=== PATIENT | male | born 1975 | race Hispanic/Latino ===

== ENCOUNTER 2019-06-02 11:11 | Emergency (ER) | payer BC ==
[2019-06-02] MEDS ORDERED: KETOROLAC 30 MG/ML INJ ONE (12:00)
--- NOTE | 2019-06-02 13:00 | RAD REPORT ---
EXAM DESCRIPTION: RAD - Knee Right 3 View - 06/02/2019 12:02 pm CLINICAL HISTORY: Knee pain, trauma COMPARISON: None. FINDINGS: No fracture, dislocation or periosteal reaction.Small joint effusion is present. No lipoma hemarthrosis evidence. No joint space narrowing. No foreign body or other soft tissue abnormality. IMPRESSION: Small joint effusion with no acute bone finding. Clinical concerns for internal derangement or occult bony injury could be further assessed with MR im aging.
--- NOTE | 2019-06-02 13:06 | ER ---
Nurse's Notes [facility] Name: Johnie Bennett Age: 43 yrs Sex: Male : 1975 Arrival Date: 06/02/2019 Time: 11:16 Bed 15 Private MD: Diagnosis: Internal derangement of knee Presentation: 06/02 11:14 Presenting complaint: Patient states: Was playing with his dog yesterday when he heard rb1 a pop and felt pain in the right knee. Transition of care: patient was not received from another setting of care. Onset of symptoms was June 01, 2019. Risk Assessment: Do you want to hurt yourself or someone else? Patient reports no desire to harm self or others. Initial Sepsis Screen: Does the patient meet any 2 criteria? No. Patient's initial sepsis screen is negative. Does the patient have a suspected source of infection? No. Patient's initial sepsis screen is negative. Care prior to arrival: None. 11:14 Method Of Arrival: Ambulatory rb1 11:14 Acuity: QUE 3 rb1 Triage Assessment: 11:14 General: Appears uncomfortable, Behavior is calm, cooperative. General: Reports He was rb1 playing with his dog and heard a loud pop in his right knee and now it is swollen. Pain: Complains of pain in right knee Pain currently is 4 out of 10 on a pain scale. Neuro: Level of Consciousness is awake, alert, obeys commands, Oriented to person, place, time, situation. Cardiovascular: Capillary refill < 3 seconds is brisk in bilateral fingers. Respiratory: Airway is patent Respiratory effort is even, unlabored, Respiratory pattern is regular, symmetrical. GI: No signs and/or symptoms were reported involving the gastrointestinal system. : No signs and/or symptoms were reported regarding the genitourinary system. Derm: Skin is pink, warm \T\ dry. Musculoskeletal: Range of motion: limited in right knee Swelling present in right knee. Historical: - Allergies: 11:14 No Known Allergies; rb1 - Home Meds: 11:14 lisinopril Oral [Active]; Metformin Oral [Active]; rb1 - PMHx: 11:14 Diabetes - NIDDM; Hypertension; rb1 - PSHx: 11:14 None; rb1 - Immunization history:: Adult Immunizations up to date. - Social history:: Smoking status: Patient/guardian denies using tobacco. - Ebola Screening: : Patient negative for fever greater than or equal to 101.5 degrees Fahrenheit, and additional compatible Ebola Virus Disease symptoms. Screenin:14 Abuse screen: Denies threats or abuse. Nutritional screening: No deficits noted. rb1 Tuberculosis screening: No symptoms or risk factors identified. Fall Risk None identified. Assessment: 11:14 General: See triage assessment. rb1 12:10 Reassessment: Patient appears in no apparent distress at this time. Patient and/or rb1 family updated on plan of care and expected duration. Pain level reassessed. Patient is alert, oriented x 3, equal unlabored respirations, skin warm/dry/pink. 13:10 Reassessment: Patient appears in no apparent distress at this time. No changes from rb1 previously documented assessment. Vital Signs: 11:14 BP 146 / 94; Pulse 83; Resp 19; Temp 97.9(O); Pulse Ox 96% on R/A; Weight 115.67 kg rb1 (R); Height 6 ft. 2 in. (187.96 cm) (R); Pain 4/10; 12:00 BP 137 / 85; Pulse 73; Resp 17; Temp 98.0(O); Pulse Ox 95% on R/A; Pain 3/10; rb1 13:00 BP 140 / 93; Pulse 68; Resp 18; Temp 98.1(O); Pulse Ox 96% ; Pain 1/10; rb1 11:14 Body Mass Index 32.74 (115.67 kg, 187.96 cm) rb1 ED Course: 11:14 Smitha Meza, RN is Primary Nurse. rb1 11:14 Patient has correct armband on for positive identification. Bed in low position. Call rb1 light in reach. Side rails up X 1. Pulse ox on. NIBP on. 11:14 Arm band placed on right wrist. rb1 11:15 Raymon Weber PA is PHCP. jmm 11:15 Camilo Ayala MD is Attending Physician. jmm 11:16 Patient arrived in ED. as 12:11 Knee Right 3 View XRAY In Process Unspecified. EDMS 12:38 Triage completed. rb1 13:03 Vineet Naqvi MD is Referral Physician. jmm 13:25 No provider procedures requiring assistance completed. Patient did not have IV access rb1 during this emergency room visit. Administered Medications: 11:45 Drug: Ketorolac 30 mg Route: IM; Site: right deltoid; rb1 12:00 Follow up: Response: No adverse reaction rb1 Outcome: 13:05 Discharge ordered by MD. marte 13:25 Discharged to home ambulatory, with significant other. rb1 13:25 Condition: stable 13:25 Discharge instructions given to patient, Instructed on discharge instructions, follow up and referral plans. medication usage, Demonstrated understanding of instructions, follow-up care, medications, Prescriptions given X 1. 13:25 Patient left the ED. rb1 Signatures: Dispatcher [employer] EDMS Raymon Weber PA PA jmm Martinez, Amelia as Barber, Rebecca, RN RN rb1
--- NOTE | 2019-06-02 13:06 | EDPHYS ---
Physician Documentation [facility] Name: Johnie Bennett Age: 43 yrs Sex: Male : 1975 Arrival Date: 06/02/2019 Time: 11:16 Bed 15 Private MD: ED Physician Camilo Ayala HPI: 06/02 11:18 This 43 yrs old Male presents to ER via Unassigned with complaints of Knee jmm Pain. 11:18 The patient presents with an injury, pain, that is acute. Onset: The symptoms/episode jmm began/occurred acutely, yesterday. Modifying factors: The symptoms are alleviated by remaining still, the symptoms are aggravated by movement, weight bearing, bending knee. The patient has not experienced similar symptoms in the past. This is a 43 year old male with a history of DM, HTN that presents to the ED with complaints of right medial knee pain beginning after twisting his knee while throwing a stick to his dog. Patient denies other injuries. 0. Historical: - Allergies: 11:14 No Known Allergies; rb1 - Home Meds: 11:14 lisinopril Oral [Active]; Metformin Oral [Active]; rb1 - PMHx: 11:14 Diabetes - NIDDM; Hypertension; rb1 - PSHx: 11:14 None; rb1 - Immunization history:: Adult Immunizations up to date. - Social history:: Smoking status: Patient/guardian denies using tobacco. - Ebola Screening: : Patient negative for fever greater than or equal to 101.5 degrees Fahrenheit, and additional compatible Ebola Virus Disease symptoms. ROS: 11:18 Constitutional: Negative for fever, chills, and weight loss, Cardiovascular: Negative jmm for chest pain, palpitations, and edema, Respiratory: Negative for shortness of breath, cough, wheezing, and pleuritic chest pain. 11:18 Skin: Negative for injury, rash, and discoloration. 11:18 MS/extremity: Positive for injury or acute deformity, pain, swelling. 11:18 All other systems are negative. Exam: 11:18 Head/Face: atraumatic. Eyes: EOMI, no conjunctival erythema appreciated ENT: Moist jmm Mucus Membranes Neck: Trachea midline, Supple Chest/axilla: Normal chest wall appearance and motion. Cardiovascular: Regular rate and rhythm. No edema appreciated Respiratory: Normal respirations, no respiratory distress appreciated Abdomen/GI: Non distended, soft Back: Normal ROM Skin: General appearance color normal 11:18 Constitutional: The patient appears in no acute distress, alert, awake. 11:18 Musculoskeletal/extremity: pain localized to the right medial knee, full passive ROM appreciated, patient is able to full extend without pain, full dorsalis pulse, compartments soft, NVI. . 11:18 Skin: Appearance: Color: normal in color. 11:18 Neuro: Orientation: is normal, Mentation: is normal, Memory: is normal. 11:18 Psych: Behavior/mood is pleasant, cooperative. Vital Signs: 11:14 BP 146 / 94; Pulse 83; Resp 19; Temp 97.9(O); Pulse Ox 96% on R/A; Weight 115.67 kg rb1 (R); Height 6 ft. 2 in. (187.96 cm) (R); Pain 4/10; 12:00 BP 137 / 85; Pulse 73; Resp 17; Temp 98.0(O); Pulse Ox 95% on R/A; Pain 3/10; rb1 13:00 BP 140 / 93; Pulse 68; Resp 18; Temp 98.1(O); Pulse Ox 96% ; Pain 1/10; rb1 11:14 Body Mass Index 32.74 (115.67 kg, 187.96 cm) rb1 MDM: 11:18 Patient medically screened. andree 13:01 Data reviewed: vital signs, nurses notes. Counseling: I had a detailed discussion with rosanna the patient and/or guardian regarding: the historical points, exam findings, and any diagnostic results supporting the discharge/admit diagnosis, radiology results, the need for outpatient follow up, to return to the emergency department if symptoms worsen or persist or if there are any questions or concerns that arise at home. ED course: Patient is alert and non toxic in appearance in the ED. I do not suspect septic joint. Extremity is NVI. Patient advised to follow up with ortho and otherwise given strict return precautions. Patient understood and agrees with the plan of care. . 06/02 11:29 Order name: Knee Right 3 View XRAY; Complete Time: 13:03 maude 06/02 12:32 Order name: Knee Immobilizer; Complete Time: 12:59 [facility] Administered Medications: 11:45 Drug: Ketorolac 30 mg Route: IM; Site: right deltoid; rb1 12:00 Follow up: Response: No adverse reaction rb1 Disposition: 06/03 07:20 Co-signature as Attending Physician, Camilo Ayala MD I agree with the assessment and andree plan of care. Disposition: 06/02/19 13:05 Discharged to Home. Impression: Internal derangement of knee. - Condition is Stable. - Discharge Instructions: Knee Pain. - Prescriptions for Ibuprofen 800 mg Oral Tablet - take 1 tablet by ORAL route every 8 hours As needed take with food; 30 tablet. - Medication Reconciliation Form, Thank You Letter, Antibiotic Education, Prescription Opioid Use, Work release form form. - Follow up: Vineet Naqvi MD; When: 2 - 3 days; Reason: Recheck today's complaints, Continuance of care, Re-evaluation by your physician. Signatures: Dispatcher [employer] EDCamilo Berger MD MD cha Mickail, Joel, PA PA Smitha Laurent, RN RN rb1 Corrections: (The following items were deleted from the chart) 06/02 13:25 13:05 06/02/2019 13:05 Discharged to Home. Impression: Internal derangement of knee. rb1 Condition is Stable. Forms are Medication Reconciliation Form, Thank You Letter, Antibiotic Education, Prescription Opioid Use. Follow up: Vineet Naqvi; When: 2 - 3 days; Reason: Recheck today's complaints, Continuance of care, Re-evaluation by your physician. rosanna
== END 2019-06-02 13:25 | disposition home or self-care (01) ==
LOC: ER 11:11
DX: M23.91 Unspecified internal derangement of right knee (principal); I10 Essential (primary) hypertension; E11.9 Type 2 diabetes mellitus without complications; X50.1XXA Overexertion from prolonged static or awkward postures, initial encounter; Y93.89 Activity, other specified; Y92.89 Other specified places as the place of occurrence of the external cause
CPT/HCPCS: 96372; 99284

== ENCOUNTER 2023-04-15 14:08 | Emergency (ER) | payer SELFPAY ==
[2023-04-15] MEDS ORDERED: ASPIRIN 81 MG CHEWABLE TABLET ONE (14:38)
[2023-04-15] MEDS ORDERED: FAMOTIDINE 20 MG/2 ML VIAL IV ONE (14:38)
[2023-04-15 14:45] LABS: Specific Gravity 1.027 (1.005-1.030); Urine Bilirubin NEGATIVE (Negative); Urine Blood Negative (Negative); Urine Clarity Clear (Clear); Urine Color Light-Yellow (Yellow); Urine Glucose 4+ (Over) (Negative); Urine Protein NEGATIVE (Negative); Urine Urobilinogen Normal (Normal)
[2023-04-15 14:48] LABS: Absolute Lymphocytes (CBC) 1.4 K/uL (0.7-4.9); Hematocrit 49.9 % (39.6-49.0); Lymphocytes % 29.2 % (15.3-44.8); MCV 92.6 fL (80-100); RBC Red Blood Cell Count 5.39 M/uL (4.33-5.43)
[2023-04-15 14:51] LABS: Protime INR 0.98
[2023-04-15 15:05] LABS: Albumin 4.1 g/dL (3.4-5.0); Bilirubin Direct 0.2 mg/dL (0-0.2); Bilirubin Indirect, Calculated 0.6 mg/dL (0.2-0.8); Bilirubin Total 0.8 mg/dL (0.2-1.0); Magnesium 2.1 mg/dL (1.6-2.4); Potassium 3.6 mEq/L (3.5-5.1); Protein, Total 8.6 g/dL (6.4-8.2)
[2023-04-15 15:07] LABS: Troponin High Sensitivity 5275.9 pg/mL (<58.9)
--- NOTE | 2023-04-15 15:07 | RAD REPORT ---
EXAM DESCRIPTION: RAD - Chest Single View - 04/15/2023 3:01 pm CLINICAL HISTORY: CHEST PAIN COMPARISON: <Comparisons> FINDINGS: Lines: None. Lungs: No evidence of edema or pneumonia. Pleural: No significant pleural effusions or pneumothorax. Cardiac: The heart size is within normal limits. Mediastinum: Within normal limits. Bones: No acute fractures. Other: None IMPRESSION: No acute cardiopulmonary disease.
--- NOTE | 2023-04-15 16:15 | RAD REPORT ---
EXAM DESCRIPTION: CTAngio Aorta For Dissection - 04/15/2023 4:04 pm CLINICAL HISTORY: chest pain/abd pain, NSTEMI COMPARISON: No comparisons TECHNIQUE: CTA of the chest, abdomen, and pelvis was performed. 3D maximum intensity pixel (MIP) rec onstructions were created of the aorta. All CT scans are performed using dose optimization technique as appropriate and may include automated exposure control or mA/KV adjustment according to patient size. FINDINGS: Thorax: Chest Wall: No abnormal mass Lungs: No acute abnormality. Pleura: No effusions or pneumothorax. Hailey/Mediastinum: No lymphadenopathy. Aorta/Pulmonary Arteries: Unremarkable Heart: Normal size. Abdomen/Pelvis: Liver: Too small to characterize liver lesions which are likely benign. Biliary: No biliary ductal dilatation. Stomach: No significant focal abnormality. Duodenum: No significant focal abnormality. Pancreas: No significant abnormality. Spleen: No significant abnormality. Adrenal: No suspicious lesions. Kidney/ureter: No hydronephrosis. No renal calculi. Retroperitoneum: No retroperitoneal adenopathy. Vascular: No aneurysm. Bowel: No significant focal abnormality. Peritoneum: No ascites or free air. Bladder: Grossly unremarkable. Reproductive: No adnexal masses. Bones: No acute fracture. Other: n/a IMPRESSION: No acute findings within the chest, abdomen, or pelvis. Specifically, no evidence of aor tic aneurysm or dissection.
--- NOTE | 2023-04-15 17:44 | ER ---
Nurse's Notes [facility] Name: Johnie Bennett Age: 47 yrs Sex: Male : 1975 Arrival Date: 04/15/2023 Time: 14:08 Bed 17 Private MD: Diagnosis: NSTEMI Presentation: 04/15 14:30 Chief complaint: Patient states: CHEST PAIN RADIATING LUE WITH DIAPHORESIS AND SOB. bp Coronavirus screen: At this time, the client does not indicate any symptoms associated with coronavirus-19. Ebola Screen: No symptoms or risks identified at this time. Initial Sepsis Screen: Does the patient meet any 2 criteria? No. Patient's initial sepsis screen is negative. Does the patient have a suspected source of infection? No. Patient's initial sepsis screen is negative. Risk Assessment: Do you want to hurt yourself or someone else? Patient reports no desire to harm self or others. Onset of symptoms is unknown. 14:30 Method Of Arrival: Ambulatory bp 14:30 Acuity: QUE 3 bp Triage Assessment: 14:30 General: Appears uncomfortable, Behavior is calm, cooperative, appropriate for age. bp Pain: Complains of pain in chest. EENT: No deficits noted. Neuro: No deficits noted. Cardiovascular: Reports chest pain, Rhythm is sinus rhythm. Respiratory: Reports shortness of breath. GI: No signs and/or symptoms were reported involving the gastrointestinal system. : No signs and/or symptoms were reported regarding the genitourinary system. Derm: Skin is diaphoretic. Musculoskeletal: No deficits noted. Historical: - Allergies: 14:30 No Known Allergies; bp - Home Meds: 14:30 lisinopril Oral [Active]; Metformin Oral [Active]; bp - PMHx: 14:30 Diabetes - NIDDM; Hypertension; bp - Immunization history:: Adult Immunizations up to date. - Social history:: Smoking status: Patient denies any tobacco usage or history of. Screenin:00 [facility] ED Fall Risk Assessment (Adult) Score/Fall Risk Level 0 - 2 = Low Risk. Abuse eh3 screen: Denies threats or abuse. Denies injuries from another. Nutritional screening: No deficits noted. Tuberculosis screening: No symptoms or risk factors identified. Assessment: 15:00 General: Appears in no apparent distress. uncomfortable, Behavior is calm, cooperative, eh3 appropriate for age. Pain: Complains of pain in chest Pain radiates to left arm Pain began suddenly, 2 hours ago. Neuro: Level of Consciousness is awake, alert, obeys commands, Oriented to person, place, time, situation. Cardiovascular: Capillary refill < 3 seconds Patient's skin is warm and dry. Respiratory: Airway is patent Respiratory effort is even, unlabored, Respiratory pattern is regular, symmetrical. GI: Abdomen is round non-distended. : No signs and/or symptoms were reported regarding the genitourinary system. EENT: No signs and/or symptoms were reported regarding the EENT system. Derm: Skin is pink, warm \T\ dry. Musculoskeletal: Circulation, motion, and sensation intact. Range of motion: intact in all extremities. 16:00 Reassessment: Patient appears in no apparent distress at this time. Patient and/or eh3 family updated on plan of care and expected duration. Pain level reassessed. Patient is alert, oriented x 3, equal unlabored respirations, skin warm/dry/pink. 17:00 Reassessment: Patient appears in no apparent distress at this time. Patient and/or eh3 family updated on plan of care and expected duration. Pain level reassessed. Patient is alert, oriented x 3, equal unlabored respirations, skin warm/dry/pink. 17:55 Reassessment: Nurse to nurse report received by Celine at [facility]. eh3 18:00 Reassessment: Patient appears in no apparent distress at this time. Patient and/or eh3 family updated on plan of care and expected duration. Pain level reassessed. Patient is alert, oriented x 3, equal unlabored respirations, skin warm/dry/pink. 18:51 Reassessment: Patient appears in no apparent distress at this time. Patient and/or eh3 family updated on plan of care and expected duration. Pain level reassessed. Patient is alert, oriented x 3, equal unlabored respirations, skin warm/dry/pink. Vital Signs: 14:30 BP 141 / 111; Pulse 105; Resp 16; Temp 97.7; Pulse Ox 100% ; Weight 117.93 kg; Height 6 mb9 ft. 2 in. ; 15:30 BP 132 / 102 Supine; Pulse 101; Resp 14; Pulse Ox 96% on R/A; eh3 15:32 BP 128 / 111 Sitting; Pulse 111; Resp 13; Pulse Ox 97% on R/A; eh3 15:34 BP 119 / 103 Standing; Pulse 115; Resp 16; Pulse Ox 96% on R/A; eh3 16:30 BP 132 / 100; Pulse 91; Resp 15; Pulse Ox 95% on R/A; eh3 17:00 BP 138 / 101; Pulse 84; Resp 19; Pulse Ox 95% on R/A; eh3 17:28 Weight 114.31 kg; eh3 17:30 BP 128 / 102; Pulse 93; Resp 18; Pulse Ox 96% on R/A; eh3 18:00 BP 130 / 96; Pulse 92; Resp 19; Pulse Ox 96% on R/A; eh3 18:30 BP 134 / 100; Pulse 91; Resp 15; Pulse Ox 96% on R/A; eh3 18:53 BP 123 / 90; Pulse 88; Resp 15; Pulse Ox 95% on R/A; eh3 17:28 Body Mass Index 32.35 (114.31 kg, 187.96 cm) [facility] ED Course: 14:13 Patient arrived in ED. ts1 14:14 Jacklyn Michael [facility]-C [facility] kb 14:14 Last Berman MD is Attending Physician. kb 14:35 Inserted saline lock: 20 gauge in left antecubital area, using aseptic technique. mb9 14:40 Basic Metabolic Panel Sent. mb9 14:40 CBC with Diff Sent. mb9 14:40 D-Dimer Sent. mb9 14:40 LFT's Sent. mb9 14:40 Magnesium Sent. mb9 14:40 NT PRO-BNP Sent. mb9 14:40 PT-INR Sent. mb9 14:40 Troponin HS Sent. mb9 14:59 Placed in gown. Bed in low position. Call light in reach. Side rails up X 1. Client mb9 placed on continuous cardiac and pulse oximetry monitoring. NIBP monitoring applied. patient monitor on. 15:00 Aisha Grigsby, RN is Primary Nurse. 3 15:00 Patient maintains SpO2 saturation greater than 95% on room air. eh3 15:00 Arm band placed on. eh3 15:02 XRAY Chest (1 view) In Process Unspecified. EDMS 15:28 Triage completed. bp 16:05 CT Aorta for Dissection In Process Unspecified. EDMS 17:14 initiated a transfer with Avis Clements from the [facility] Transfer [facility]. eb 17:[address] Chavez the supervisor mails operational risk manager for [facility] for patient transfer eb consultation. 17:51 administrative approval given by Avis Clements Rn/ patient has been accepted to [facility] rm [id number]/ Dr. Clary Chavez has accepted the patient in transfer/ report to be called to [phone]. 18:54 No provider procedures requiring assistance completed. Patient transferred, IV remains eh3 in place. Administered Medications: 14:39 Drug: Aspirin PO Chewable Tablet 324 mg Route: PO; mb9 15:36 Follow up: Response: No adverse reaction eh3 14:39 Drug: Famotidine IVP 20 mg Route: IVP; Site: left antecubital; mb9 15:37 Follow up: Response: No adverse reaction eh3 17:45 Drug: Heparin (DC-Bolus No thrombolytic) - HEParin IVP 60 units/kg {Co-Signature: aa5 eh3 (Carmelita Beltran RN).} Route: IVP; Site: left antecubital; 18:54 Follow up: Response: No adverse reaction eh3 17:45 Drug: Heparin (DC Drip) - (D5W IV 500 ml, [place] [address] units) 12 units/kg/hr eh3 {Co-Signature: aa5 (Carmelita Beltran RN).} Route: IV; Rate: calculated rate; Site: left antecubital; 18:54 Follow up: Response: No adverse reaction; IV Status: Infusion continued upon transfer; eh3 IV Intake: 20ml Medication: 14:59 VIS not applicable for this client. mb9 Intake: 18:54 IV: 20ml; Total: 20ml. eh3 Outcome: 17:44 ER care complete, transfer ordered by MD. yoon 18:54 Transferred by ground EMS to [facility], Transfer form completed. eh3 18:54 Condition: stable 18:54 Instructed on the need for transfer. 18:55 Patient left the ED. eh3 Signatures: Dispatcher [employer] EDMS Jacklyn Michael, DEB INTERNATIONAL SALES REPRESENTATIVE-Roland Acosta, RN RN Bhakti Valencia Erin RN RN eh3 Tiffanie Mendiola RN RN mb9 Carrie Christie PAS PAS 1 Carmelita Beltran RN aa5 Corrections: (The following items were deleted from the chart) 17:52 17:[address] Negrete the supervisor mails operational risk manager for [facility] for patient eb transfer consultation. eb
--- NOTE | 2023-04-15 17:44 | EDPHYS ---
Physician Documentation [facility] Name: Johnie Bennett Age: 47 yrs Sex: Male : 1975 Arrival Date: 04/15/2023 Time: 14:08 Bed 17 Private MD: ED Physician Last Berman HPI: 04/15 14:33 This 47 yrs old Male presents to ER via Unassigned with complaints of Chest kb Pain, Constant heatburn/sweating. 16:03 The patient or guardian reports chest pain that is located primarily in the epigastric kb area. Onset: 4 day(s) ago. The pain does not radiate. Associated signs and symptoms: Pertinent positives: dizziness, shortness of breath. The chest pain is described as burning. Duration: The patient or guardian reports a single episode, that is still ongoing, but improving. Modifying factors: The symptoms are alleviated by nothing. the symptoms are aggravated by nothing. Severity of pain: At its worst the pain was moderate in the emergency department the pain has improved. The patient has not experienced similar symptoms in the past. The patient has not recently seen a physician. Pt reports heartburn that has been constant since Monday night. States he gets numbness to left arm after laying on it for a short time. Reports episode of diaphoresis and shortness of breath while at work this morning. States he came in because he checked his BP and it was 140s/100s. . Historical: - Allergies: 14:30 No Known Allergies; bp - Home Meds: 14:30 lisinopril Oral [Active]; Metformin Oral [Active]; bp - PMHx: 14:30 Diabetes - NIDDM; Hypertension; bp - Immunization history:: Adult Immunizations up to date. - Social history:: Smoking status: Patient denies any tobacco usage or history of. ROS: 14:30 Constitutional: Negative for fever, chills, and weight loss. kb 14:30 Cardiovascular: Positive for chest pain, Negative for edema, orthopnea, palpitations, paroxysmal nocturnal dyspnea. 14:30 Respiratory: Positive for shortness of breath. 14:30 Abdomen/GI: Positive for heart burn. 14:30 All other systems are negative. 14:31 Neuro: Positive for dizziness. kb Exam: 14:29 Constitutional: This is a well developed, well nourished patient who is awake, alert, kb and in no acute distress. Head/Face: Normocephalic, atraumatic. ENT: Moist Mucous membranes Cardiovascular: Regular rate and rhythm with a normal S1 and S2. No gallops, murmurs, or rubs. No pulse deficits. Respiratory: Respirations even and unlabored. No increased work of breathing. Talking in full sentences Abdomen/GI: Soft, non-tender. No distention Skin: Warm, dry with normal turgor. Normal color. MS/ Extremity: Pulses equal, no cyanosis. Neurovascular intact. Full, normal range of motion. Neuro: Awake and alert, GCS 15, oriented to person, place, time, and situation. Moves all extremities. Normal gait. 14:29 ECG was reviewed by the Attending Physician. Vital Signs: 14:30 BP 141 / 111; Pulse 105; Resp 16; Temp 97.7; Pulse Ox 100% ; Weight 117.93 kg; Height 6 mb9 ft. 2 in. ; 15:30 BP 132 / 102 Supine; Pulse 101; Resp 14; Pulse Ox 96% on R/A; eh3 15:32 BP 128 / 111 Sitting; Pulse 111; Resp 13; Pulse Ox 97% on R/A; eh3 15:34 BP 119 / 103 Standing; Pulse 115; Resp 16; Pulse Ox 96% on R/A; eh3 16:30 BP 132 / 100; Pulse 91; Resp 15; Pulse Ox 95% on R/A; eh3 17:00 BP 138 / 101; Pulse 84; Resp 19; Pulse Ox 95% on R/A; eh3 17:28 Weight 114.31 kg; eh3 17:30 BP 128 / 102; Pulse 93; Resp 18; Pulse Ox 96% on R/A; eh3 18:00 BP 130 / 96; Pulse 92; Resp 19; Pulse Ox 96% on R/A; eh3 18:30 BP 134 / 100; Pulse 91; Resp 15; Pulse Ox 96% on R/A; eh3 18:53 BP 123 / 90; Pulse 88; Resp 15; Pulse Ox 95% on R/A; eh3 17:28 Body Mass Index 32.35 (114.31 kg, 187.96 cm) eh3 MDM: 14:15 Patient medically screened. kb 14:29 Data reviewed: vital signs, nurses notes. kb 14:33 Differential diagnosis: abnormal EKG, acute myocardial infarction, coronary artery kb disease chest wall pain, esophagitis, gastritis, gastroesophageal reflux disease (GERD). The patient was given aspirin in the Emergency Department. 16:38 Management of patient was discussed with the following: Tobacco Prevention Health Educator: Message sent to Dr karrie Velazquez, awaiting response. 17:17 ED course: Called Dr Velazquez with no answer. Dr Berman recommends transfer. kb 17:35 Consideration of Admission/Observation pt will be transferred due to lack of supervisor laboratory kb availability. Counseling: I had a detailed discussion with the patient and/or guardian regarding: the historical points, exam findings, and any diagnostic results supporting the discharge/admit diagnosis, lab results, radiology results, the need to transfer to another facility. 17:51 ED course: Dr Chavez accepts pt to CCU. kb 04/15 14:20 Order name: Basic Metabolic Panel; Complete Time: 15:11 kb 04/15 14:20 Order name: CBC with Diff; Complete Time: 15:11 kb 04/15 14:20 Order name: D-Dimer; Complete Time: 15:11 kb 04/15 14:20 Order name: LFT's; Complete Time: 15:11 kb 04/15 14:20 Order name: Magnesium; Complete Time: 15:11 kb 04/15 14:20 Order name: NT PRO-BNP; Complete Time: 15:11 kb 04/15 14:20 Order name: PT-INR; Complete Time: 15:11 kb 04/15 14:20 Order name: Troponin HS; Complete Time: 15:11 kb 04/15 14:20 Order name: CPK; Complete Time: 15:11 kb 04/15 14:20 Order name: Urinalysis w/ reflexes; Complete Time: 14:46 kb 04/15 18:14 Order name: PTT, Activated Partial Thromb; Complete Time: 18:37 EDMS 04/15 14:20 Order name: XRAY Chest (1 view); Complete Time: 15:11 kb 04/15 15:24 Order name: CT Aorta for Dissection; Complete Time: 16:19 rn 04/15 14:20 Order name: EKG; Complete Time: 14:20 kb 04/15 14:20 Order name: Cardiac monitoring; Complete Time: 15:00 kb 04/15 14:20 Order name: EKG - Nurse/Tech; Complete Time: 14:29 kb 04/15 14:20 Order name: IV Saline Lock; Complete Time: 14:39 kb 04/15 14:20 Order name: Labs collected and sent; Complete Time: 14:40 kb 04/15 14:20 Order name: O2 Per Protocol; Complete Time: 15:00 kb 04/15 14:20 Order name: O2 Sat Monitoring; Complete Time: 15:00 kb 04/15 14:20 Order name: Orthostatics; Complete Time: 15:36 kb EC:29 Rate is 96 beats/min. Rhythm is regular. QRS [place] is Normal. ID interval is normal at kb 138 msec. QRS interval is normal at 92 msec. QT interval is normal at 467 msec. Administered Medications: 14:39 Drug: Aspirin PO Chewable Tablet 324 mg Route: PO; mb9 15:36 Follow up: Response: No adverse reaction eh3 14:39 Drug: Famotidine IVP 20 mg Route: IVP; Site: left antecubital; mb9 15:37 Follow up: Response: No adverse reaction eh3 17:45 Drug: Heparin (IA-Bolus No thrombolytic) - HEParin IVP 60 units/kg {Co-Signature: aa5 eh3 (Carmelita Beltran RN).} Route: IVP; Site: left antecubital; 18:54 Follow up: Response: No adverse reaction eh3 17:45 Drug: Heparin (IA Drip) - (D5W IV 500 ml, [place] [address] units) 12 units/kg/hr eh3 {Co-Signature: aa5 (Carmelita Beltran RN).} Route: IV; Rate: calculated rate; Site: left antecubital; 18:54 Follow up: Response: No adverse reaction; IV Status: Infusion continued upon transfer; eh3 IV Intake: 20ml Disposition: 17:14 Co-signature as Attending Physician, Last Berman MD I agree with the assessment and rn plan of care. I reviewed the patient's care provided by Advanced Practice Provider \T\ agree w/ the diagnosis \T\ care plan. I personally saw the pt \T\ performed a substantive portion of the visit, incldng all aspects of the (History/Exam/Medical Decision Making). PA/GASATERIA ATTENDANT's history reviewed, patient interviewed, and examined. HPI: 47 year old male with intermittent chest pain and diaphoresis for 3 days. My personal exam of patient reveals: Calm, no acute distress, no abd distension or tenderness I agree with assessment and care plan and confirm the diagnosis (es) above. Disposition Summary: 04/15/23 17:44 Transfer Ordered Transfer Location: [facility] kb Reason: Higher level of care kb Condition: Stable kb Problem: new kb Symptoms: are unchanged kb Accepting Physician: Dr Chavez(04/15/23 18:55) eh3 Diagnosis - NSTEMI kb Forms: - Medication Reconciliation Form kb - SBAR form kb Signatures: Dispatcher [employer] EDMS Jacklyn Michael, CUFF FOLDER-C CUFF FOLDER-Ckb Chapis Navas CUFF FOLDER-C CUFF FOLDER-Csnw Last Berman MD MD rn Peltier, Brian RN RN Aisha Najera RN RN eh3 Tiffanie Mendiola RN RN mb9 Carmelita Beltran RN aa5 Corrections: (The following items were deleted from the chart) 17:51 17:44 Dr yoon kb 18:55 17:51 Dr Chavez kb eh3
[2023-04-15] MEDS ORDERED: HEPARIN/D5W 25,000 UNIT/500 ML BAG IV ONE (17:49)
[2023-04-15] MEDS ORDERED: HEPARIN 5000 UNIT/ML 1 ML VIAL ONE (17:56)
[2023-04-15 19:38] VITALS: BP 123/90
[2023-04-15 19:58] VITALS: TEMP 98.1; O2SAT 100
--- NOTE | 2023-04-17 12:07 | EKG ---
Test Date: 2023-04-15 Test Time: 14:24:21 [employer] [place]: BP MEASUREMENT RESULTS: Intervals: Rate: 96 AK: 138 QRSD: 92 QT: 370 QTc: 467 [place]: P: 42 AK: 138 QRS: 104 T: 50 INTERPRETIVE STATEMENTS: Normal sinus rhythm Nonspecific ST abnormality Abnormal ECG No previous ECG available for comparison Electronically Signed On 04-17-23 12:01:07 CDT by Mino Velazquez
== END 2023-04-15 18:55 | disposition short-term general hospital (02) ==
LOC: ER 14:08
DX: I21.4 Non-ST elevation (NSTEMI) myocardial infarction (principal)
CPT/HCPCS: 36415; 71045; 71275; 74175; 80048; 80076; 81003; 82550; 83735; 83880; 84484; 85025; 85379; 85610; 85730; 93005; 96365; 96375; 99285; J1644; Q9967